=== PATIENT | female | born 1990 | race African-American/Black ===

== ENCOUNTER 2025-01-22 09:14 | Outpatient (CLI) | payer OTHER, SELFPAY ==
--- OUTSIDE RECORDS SUMMARY | 2025-01-22 09:35 | XMS_ITS | Encounter Summary ---
Author Organization [facility] Address [address] [place] [address] Care Team Providers Care Plate Printer Name Role Phone Tori Ron NP Primary Care Provider [phone] Encounter Details Date Type Department Care Team (Late st Contact Info) Description 01/20/2024 Happy [employer]iot Message Enc [facility] Medical Group Multispecialty Care - [place] [address] [place] [address] Tori Ron, WOOD CAULKER [address] [place] [address] medications Social History Tobacco Use Types Packs/Day Years Used Date Smoking Tobacco: Never Smokeless Tobacco: Never Alcohol Use Standard Drinks/Week Comments Yes 1.7 (1 standard drink = 0.6 oz p ure alcohol) AUDIT-C Answer Date Recorded Frequency of Alcohol Consumption Never 12/25/2017 Average Number of Drinks Not on file 018 Frequency of Binge Drinking Not on file 12/12 PHQ-2 Answer Date Recorded Patient Health Questionnaire-2 Score 1 08/19/2022 Comments No Sex and Gender Information Value Date Recorded Sex Assigned at Not on file Legal Sex Female 4:26 PM CDT Gender Identity Not on file Sexual Orientation Not on file documented as of this encounter Plan of Treatment Not on file documented as of this encounter Visit Diagnoses Not on filedocumented in this encounter Additional Health Concerns Assessment Noted Time PHQ-9 Depression Total Score: 11 023 10:32 AM CDT documented as of this encounter Care Teams Plate Printer Relationship Specialty Start Date End Date Tori Ron, WOOD CAULKER [address] [facility] [address] [place] [address] PCP - General NURSE PRACTITIONER 08/11/23 documented as of this encounter
--- OUTSIDE RECORDS SUMMARY | 2025-01-22 09:35 | XMS_ITS | Encounter Summary ---
Author Organization [facility] Address [address] [place] [address] Care Team Providers Care Nondestructive Tester Name Role Phone Kayla Cornelius CARRIER WASHER Primary Care Provider Tori Mcclellan CARRIER WASHER Primary Care Provider [phone] Encounter Details Date Type Department Care Team (Late st Contact Info) Description 08/25/2022 [employer] Message Enc [facility] Medical Group Family Medicine [address] [address] Darlene, [facility] Provider Lab results Social History Tobacco Use Types Packs/Day Years [...] on file Sexual Orientation Not on file COVID-19 Exposure Response Date Recorded In the last 10 days, have yo u been in contact with someone who was confirmed or suspected to have Coronavirus/COVID-19? No / Unsure 08/19/2022 10:04 AM CDT documented as of this encounter Plan of Treatment Not on file documented as of this encounter Visit Diagnoses Not on filedocumented in this encounter Additional Health Concerns Assessment Noted Time PHQ-9 Depression Total Score: 11 023 10:32 AM CDT documented as of this encounter Care Teams Nondestructive Tester Relationship Specialty Start Date End Date Kayla Cornelius, CARRIER WASHER PCP - General NURSE PRACTITIONER 07/13/22 08/10/23 Tori Ron, CARRIER WASHER [address] [facility] [address] [place] [address] PCP - General NURSE PRACTITIONER 08/11/23 documented as of this encounter
--- OUTSIDE RECORDS SUMMARY | 2025-01-22 09:35 | XMS_ITS | Encounter Summary ---
Author Organization [facility] Address [address] [place] [address] Phone Care Team Providers Care Ticket Collector Or Usher Name Role Phone Kayla Cornelius APRN, KAVEH Primary Care Provider + Juan Kong MD Unavailable Encounter Details Date Type Department Care Team (Late st Contact Info) Description 01/12/2024 Telephone [facility] [address] [place] [address] Juan Kong MD [address] [place] [address] Social History Tobacco Use Types Packs/Day Years Used Date Smoking Tobacco: Never Smokeless Tobacco: Never Alcohol Use Standard Drinks/Week Comments Yes 0 (1 standard drink = 0.6 oz pur e alcohol) Sexually Active Control Partners Comments Yes Comments Unknown Sex and Gender Information Value Date Recorded Sex Assigned at Not on file 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 Gender Identity Not on file Sexual Orientation Not on file documented as of this encounter Miscellaneous Notes * Telephone Encounter - Chyna Barrera - 01/12/2024 3:22 PM CDT Called patient about missed appointment left voicemail stating to call office for rescheduling sentreminder letter out as well documented in this encounter Plan of Treatment Not on file documented as of this encounter Visit Diagnoses Not on filedocumented in this encounter Care Teams Ticket Collector Or Usher Relationship Specialty Start Date End Date Kayla Cornelius APRN, KAVEH [address] [place] [address] PCP - General Family Medicine 09/03/22 Juan Kong MD [address] [place] [address] Consulting Physician Oncology 12/31/22 documented as of this encounter
--- OUTSIDE RECORDS SUMMARY | 2025-01-22 09:35 | XMS_ITS | Encounter Summary ---
Author Organization [facility] Address [address] [place] [address] Care Team Providers Care Medical Billing Assistant Name Role Phone Kayla Cornelius MACHINE SPRAYER Primary Care Provider Tori Mcclellan MACHINE SPRAYER Primary Care Provider [phone] Encounter Details Date Type Department Care Team (Late st Contact Info) Description 09/03/2022 [employer] Message Enc [facility] Medical Group Family Medicine - [place] [address] [place] [address] Kayla Cornelius, LEXI iron level Social History Tobacco Use Types Packs/Day Years [...] documented as of this encounter Care Teams Medical Billing Assistant Relationship Specialty Start Date End Date Kayla Cornelius, MACHINE SPRAYER PCP - General NURSE PRACTITIONER 07/13/22 08/10/23 Tori Ron, MACHINE SPRAYER [address] [facility] [address] [place] [address] PCP - General NURSE PRACTITIONER 08/11/23 documented as of this encounter
--- OUTSIDE RECORDS SUMMARY | 2025-01-22 09:35 | XMS_ITS | Encounter Summary ---
Author Organization [facility] Address [address] [place] [address] Care Team Providers Care Refractory Products Supervisor Name Role Phone Kayla Cornelius WINDSHIELD TECHNICIAN Primary Care Provider Tori Mcclellan WINDSHIELD TECHNICIAN Primary Care Provider [phone] Encounter Details Date Type Department Care Team (Late st Contact Info) Description 06/24/2023 [employer] Message Enc [facility] Medical Group Family Medicine - [place] [address] [place] [address] Darlene, [facility] Provider Medic ation Refills Social History Tobacco Use Types Packs/Day Years [...] documented as of this encounter Care Teams Refractory Products Supervisor Relationship Specialty Start Date End Date Kayla Cornelius, WINDSHIELD TECHNICIAN PCP - General NURSE PRACTITIONER 07/13/22 08/10/23 Tori Ron, LEXI [address] [facility] [address] [place] [address] PCP - General NURSE PRACTITIONER 08/11/23 documented as of this encounter
--- OUTSIDE RECORDS SUMMARY | 2025-01-22 09:35 | XMS_ITS | Clinical Summary ---
Author Organization [facility] Address [address] [place] [address] Care Team Providers Care Logging Crew Supervisor Name Role Phone Kayla Cornelius APRN, KAVEH Primary Care Provider + Juan Kong MD Unavailable Allergies No known active allergies Medications ferrous sulfate 220 (44 Fe) MG/5ML Elixir Take 220 mg by mouth. Active VITAMIN D PO Take by mouth. Ac tive Phentermine HCl 37.5 MG Tablet 3 Active valACYclovir (VALTREX) 500 MG Tablet 3 Active MULTIPLE VITAMIN PO Take 3 Each by mouth. Active metFORMIN (GLUCOPHAGE-XR) 500 MG TABLET SR 24 HR Take 1,500 mg by mouth. 4 Active Wegovy 0.25 MG/0.5ML Solution Auto-injector 0.25 mg by Subcutaneous route. 4 Active Active Problems Problem Noted Date Diagnosed Date Iron deficiency anemia 12/01/2022 Family History Medical History Relation Name Comments Congestive Heart Failure Mother Relation Name Status Comments Brother Alive Father Alive Mother Alive Social History Tobacco Use Types Packs/Day Years Used Date Smoking Tobacco: Never Smokeless Tobacco: Never Tobacco Cessation:Counseling Given: No Alcohol Use Standard Drinks/Week Comments Yes 0 (1 standard drink = 0.6 oz pur e alcohol) Sexually Active Control Partners Comments Yes Comments Unknown Sex and Gender Information Value Date Recorded Sex Assigned at Not on file 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 Gender Identity Not on file Sexual Orientation Not on file Last Filed Vital Signs Vital Sign Reading Time Taken Comments Blood Pressure 114/68 10/13/2023 10:28 AM CDT Pulse 72 10/13/2023 10:28 AM CDT Temperature 36.7 C (98 F) 10/13/2023 10:28 AM CDT Respiratory Rate 18 10/13/2023 10:2 8 AM CDT Oxygen Saturation 99% 10/13/2023 10: 28 AM CDT Inhaled Oxygen Concentration - - Weight 101.2 kg (223 lb 1.6 oz) 024 10:28 AM CDT Height 167.6 cm (5' 6) 10/13/2023 10:2 8 AM CDT Body Mass Index 36.01 10/13/2023 10:28 AM CDT Plan of Treatment Health Maintenance Due Date Last Done Comments Hepatitis C Virus (HCV) Screening 1989 Hepatitis B Immunization (3 of 3 - 3-dose series) 09/13/1996 07/19/1996, 01/09/1996 Human Papillomavirus (HPV) Immunization (1 - 3-dose SCDM series) 2016 HPV/Cotest 2019 Influenza Immunization (#1) 2024 SARS-COV-2 Immunization ( season) 2024 Cervical Cancer Screening (CCS) 12/30/2025 Pap Smear 12/30/2025 12/30/2022 Respiratory Syncytial Virus (RSV) Immunization (Adult) (1 - 1-dose 75+ series) 2064 DTaP/Tdap/Td Immunization Discontinued 2015, 09/06/2011, 10/24/2003, Additional history exists TdaP Immunization Completed 12/03/2015 Meningococcal Immunization (ACWY) Aged Out No longer eligible based on patient's age to complete this topic Pneumococcal Immunization Combined Aged Out No longer eligible based on patient's age to complete this topic Rotavirus Immunization Aged Out No lo nger eligible based on patient's age to complete this topic Insurance [facility] Care Teams Logging Crew Supervisor Relationship Specialty Start Date End Date Kayla Cornelius APRN, PULP BEATER [address] [place] [address] PCP - General Family Medicine 09/03/22 Juan Kong MD [address] [place] [address] Consulting Physician Oncology 12/31/22
--- OUTSIDE RECORDS SUMMARY | 2025-01-22 09:35 | XMS_ITS | Clinical Summary ---
Author Organization [facility] [address] [place] [address] Address [address] [place] [address] Care Team Providers Care Adjunct Business Instructor Name Role Phone Taiwo Mccoy MD Primary Care Provider Allergies No known active allergies Medications albuterol sulfate (ProAir RespiClick) 90 mcg/actuation metered powder inhalerIndication s:Mild intermittent extrinsic asthma without complication Take 2 Puffs by inhalation every 6 hours as needed for Shortness of Breath. For wheezing 1 Each 1 3 Active valACYclovir (VALTREX) 500 mg tablet Take 1 Tablet (500 mg) by mouth daily. 30 Tablet 1 4 Active metFORMIN (GLUCOPHAGE XR) 500 mg Extended Release 24 hour tablet Take 3 Tablets (1,500 mg) by mouth daily with supper. 270 Tablet 1 4 Active Zepbound 2.5 mg/0.5 mL Pen Injector INJECT 2.5MG UNDER THE SKIN EVERY 7 DAYS 2 mL 4 Active Active Problems Problem Noted Date Diagnosed Date Severe obesity (BMI 35.0-39.9) with comorbidity 08/23/2023 Hyperlipidemia 08/23/2023 Hyperinsulinemia 08/23/2023 Iron deficiency anemia 12/01/2022 Extrinsic asthma 06/07/2022 Seasonal allergic rhinitis 06/07/2022 Pain of upper abdomen 10/16/2021 Bloating symptom 10/16/2021 Encounters Date Type Department Care Team Description 01/09/2025 External Device Data ST[facility] ABSTRACTION Provider, Abstract 01/08/2025 External Device Data [facility] ABSTRACTION Provider, Abstract 01/02/2025 External Device Data [facility] ABSTRACTION Provider, Abstract 12/18/2024 External Device Data [facility] ABSTRACTION Provider, Abstract 12/04/2024 External Device Data [facility] ABSTRACTION Provider, Abstract 11/27/2024 External Device Data [facility] ABSTRACTION Provider, Abstract 11/13/2024 External Device Data ST[place] ABSTRACTION Provider, Abstract 10/30/2024 External Device Data ST[place] ABSTRACTION Provider, Abstract 10/30/2024 External Device Data ST[place] ABSTRACTION Provider, Abstract 10/23/2024 External Device Data STL ABSTRACTION Provider, Abstract from Last 3 Months Family History Medical History Relation Name Comments Diabetes Maternal Grandmother Gentrevor Heart Disease Mother Mitzi Hypertension Mother Mitzi Relation Name Status Comments Maternal Grandmother Gennetta Mother Mitzi Social History Tobacco Use Types Packs/Day Years Used Date Smoking Tobacco: Never Smokeless Tobacco: Never Tobacco Cessation:Counseling Given: Not Answered Alcohol Use Standard Drinks/Week Comments Yes 0 (1 standard drink = 0.6 oz pur e alcohol) 2 glasses during week Comments No Sex and Gender Information Value Date Recorded Sex Assigned at Not on file Legal Sex Female 10:18 AM CDT Gender Identity Not on file Sexual Orientation Not on file Last Filed Vital Signs Vital Sign Reading Time Taken Comments Blood Pressure 108/68 08/23/2023 1:39 PM CDT Pulse 68 08/23/2023 1:39 PM CDT Temperature 36.1 C (97 F) 03/17/2020 4:52 PM BACKPACKERS MANAGER Respiratory Rate 15 08/03/2023 9:52 AM CDT Oxygen Saturation 98% 08/23/2023 1:39 PM CDT Inhaled Oxygen Concentration - - Weight 100.6 kg (221 lb 12.8 oz) 08/23/2023 1:39 PM CDT Height 165.1 cm (5' 5) 08/23/2023 1:39 PM CDT Body Mass Index 36.91 08/23/2023 1:39 PM CDT Plan of Treatment Health Maintenance Due Date Last Done Comments DTAP/TDAP/TD VACCINES (1 - Tdap) 2008 HEPATITIS B VACCINES (1 of 3 - 19+ 3-dose series) 2008 HPV/Cotest (21-29) 2010 HPV VACCINES (1 - 3-dose SCDM series) 2016 HPV/Cotest (30-65) 2019 Preventative Visit- Commercial 03/14/2024 1 , 06/07/2022, 02/07/2019 INFLUENZA VACCINE (#1) 2024 CERVICAL CANCER SCREENING 12/30/2025 PAP SMEAR 12/30/2025 12/30/2022 Pre-Diabetes and Diabetes Screening 07/26/202607/26 Procedures Procedure Name Priority Date/Time Associated Diagnosis Comments HEMOGLOBIN A1C Routine 07/27/2023 7:23 AM CDT Screening for diabetes mellitus from Last 3 Months or Most Recently Relevant to Health Maintenance Results * HEMOGLOBIN A1C (07/27/2023 7:23 AM CDT) HEMOGLOBIN A1C 5.5 <5.7 % of total Hgb [employer] Comment: For the purpose of screening for the presence of diabetes: <5.7% Consistent with the absence of diabetes 5.7-6.4% Consistent with increased risk for diabetes (prediabetes) > or =6.5% Consistent with diabetes This assay result is consistent with a decreased risk of diabetes. Currently, no consensus exists regarding use of hemoglobin A1c for diagnosis of diabetes in children. According to [place] Diabetes Association (ADA) guidelines, hemoglobin A1c <7.0% represents optimal control in non- diabetic patients. Different metrics may apply to specific patient populations. Standards of Medical Care in Diabetes(ADA). ESTIMATED AVERAGE GLUCOSE (MG/DL) 111 mg/dL [employer] [employer] ESTIMATED AVERAGE GLUCOSE (MMOL/L) 6.2 mmol/L [employer] Comment: This test was performed on the Azalea jae c503 platform. Effective 05/30/23, a change in test platforms from the [employer]iler to the Azalea jae c503 may have shifted HbA1c results compared to historical results. Based on laboratory validation testing conducted at [facility], the Azalea platform relative to the Sylvester platform had an average increase in HbA1c value of < or = 0.3%. This difference is within accepted variability established by the National Glycohemoglobin Standardization Program. Note that not all individuals will have had a shift in their results and direct comparisons between historical and current results for testing conducted on different platforms is not recommended. FASTING:YES FASTING: YES Test Performed at: [facility] [address] [address] Marie Newman Blood 07/27/2023 7:23 AM CDT 07/27/2023 7:23 AM CDT Kendra Wilson ANP CHEMISTRY ORDERABLES Final R esult [facility] [phone] [facility] [address] [address] [phone] from Last 3 Months or Most Recently Relevant to Health Maintenance Insurance [facility] [id number] Care Teams Adjunct Business Instructor Relationship Specialty Start Date End Date Taiwo Mccoy MD [address] [facility] [address] [place] [address] PCP - General Family Practice 10/16/21
--- OUTSIDE RECORDS SUMMARY | 2025-01-22 09:35 | XMS_ITS | Clinical Summary ---
Author Organization [facility] Address [address] [place] [address] Care Team Providers Care Gas Welder Apprentice Name Role Phone Tori Ron EMPLOYEE RELATIONS DIRECTOR Primary Care Provider [phone] Allergies No known active allergies Medications ferrous sulfate 220 (44 Fe) MG/5ML liquid Take 5 mLs (220 mg total) by mouth 2 (two) times daily. Active Cholecalciferol (VITAMIN D3) Powder Take by mouth. Activ e phentermine (ADIPEX-P) 37.5 MG tabletIndicatio ns:Obesity (BMI 30-39.9) Take 1 tablet (37.5 mg total) by mouth every morning before breakfast. 30 tablet 3 Active Additional Information Patient not taking.Reported on 05/03/2023 Multiple Vitamins-Minera ls (MULTIVITAMIN GUMMIES ADULTS OR) Take 3 each by mouth daily. Includes a Probiotic Active valACYclovir (VALTREX) 500 MG tabletIndicatio ns:Herpes Take 1 tablet (500 mg total) by mouth daily. 30 tablet 4 Active Family History Medical History Relation Comments Diabetes Father Diabetes Maternal Grandmother Diabetes Mother Relation Status Comments Father Alive Maternal Grandmother Mother Alive Social History Tobacco Use Types Packs/Day Years Used Date Smoking Tobacco: Never Smokeless Tobacco: Never Tobacco Cessation:Counseling Given: Not Answered Alcohol Use Standard Drinks/Week Comments Yes 1.7 [...] Sign Reading Time Taken Comments Blood Pressure 90/58 05/03/2023 11:25 AM [employer]ALL INTER[employer] Pulse 72 05/03/2023 11:25 AM [employer]ALL INTER[employer] Temperature 36.4 C (97.5 F) 05/03/2023 11:25 AM [employer] INTER[employer] Respiratory Rate 18 12/30/2022 12:27 PM CDT Oxygen Saturation 98% 12/30/2022 12:27 PM CDT Inhaled Oxygen Concentration - - Weight 95.7 kg (211 lb) 05/03/2023 11:25 AM FALL INTERNSHIP Height 167.6 cm (5' 6) 05/03/2023 11:25 AM [employer]ALL INTERNS[employer] Body Mass Index 34.06 05/03/2023 11:25 AM [employer] Plan of Treatment Health Maintenance Due Date Last Done Comments Hepatitis C 2007 DTaP, Tdap and Td Vaccines (1 - Tdap) 2008 01/09/1996, 01/14/1993, 01/11/1990, Additional history exists Hepatitis B Vaccines (1 of 3 - 19+ 3-dose series) 2008 HPV Vaccines (1 - 3-dose SCDM series) 2016 Annual Physical 12/31/2023 12/30/2022 PHQ-2 (Physician [place]) 03/14/2024 COVID-19 Vaccine ( season) 2024 Influenza Adult (#1) 2024 Cervical Cancer Screening Pap Smear (Age 30 to 64) Every 3 Years 12/30/2025 12/30/2022 Cervical Cancer Screening Pap with HPV Testing (Age 30 to 64) Every 5 Years 12/31/2027 12/30/2022 Cervical Cancer Screening with HPV 12/31/2027 Hepatitis A Vaccines Aged Out No long er eligible based on patient's age to complete this topic Meningococcal B Vaccine Aged Out No l onger eligible based on patient's age to complete this topic Meningococcal Vaccine Aged Out No rosi millie eligible based on patient's age to complete this topic Pneumococcal Vaccine: Pediatrics (0 to 5 Years) and At-Risk Patients (6 to 49 Years) Aged Out No longer eligible based on patient's age to complete this topic RSV Immunizations Under 20 Months Aged Out No longer eligible based on patient's age to complete this topic Procedures Procedure Name Priority Date/Time Associated Diagnosis Comments HUMAN PAPILLOMAVIRUS, HIGH-RISK TYPES Routine 12/30/2022 12:00 PM CDT CYTOPATH CERV/VAG THIN LAYER Routine 12/30/2022 8:31 AM CDT from Last 3 Months or Most Recently Relevant to Health Maintenance Results * HUMAN PAPILLOMAVIRUS, HIGH-RISK TYPES (12/30/2022 12:00 PM CDT) SPEC DESCRIPTION CERVIX 01/04/20 9:50 AM CDT [facility] HPV DNA HIGH RISK NEGATIVE NEGATIVE 01/03/2023 4:08 PM CDT [facility] Comment:SEE CYTOLOGY REPORT 12/30/2022 12:0 0 PM CDT Mary Kay Cornelius NP PATHOLOGY/CYTOLOGY ORDERABLES F inal Result [facility] [address] [place] [address], * Cytopath Cerv/Vag Thin Layer (12/30/2022 8:31 AM CDT) THIN PREP [facility] [address] [place] [address] Department of Pathology Pathology Report CERVICAL/VAGINAL PAP SMEAR REPORT Name: BONNIE WHATLEY Age: 2 1990 (Age: 32) Location: [facility] Sex: F Collected Date: 12/30/2022 [facility] #: [id number] Date Received: 01/03/2023 Date Reported: 01/04/2023 Provider: MARY KAY CORNELIUS NP INTERPRETATION CERVICAL/ENDOCERVI SENAIT: SATISFACTORY FOR EVALUATION. ENDOCERVICAL/TRANS FORMATION ZONE COMPONENT PRESENT. NEGATIVE FOR INTRAEPITHELIAL LESION OR MALIGNANCY. SHIFT IN BACTERIAL FELIX SUGGESTIVE OF BACTERIAL VAGINOSIS. NEGATIVE FOR HIGH RISK HPV. The FDA approved Aptima HPV assay is an in vitro nucleic acid amplification test for the qualitative detection of E6/E7 viral messenger RNA (mRNA) from 14 high-risk types of human papillomavirus (HPV) in cervical specimens. The high-risk HPV types detected by the assay include: 16,18,31,33,35,39, 45,51,52,56,58,59, 66, and 68. Electronically Signed Out By LOLY Raymond (ASCP) CLINICAL HISTORY Z01.419 SCREENING PAP ThinPrep Pap Test with HR HPV testing in patient > 30 years requested. Date of Last Menstrual Period: 12/26/2022 Menstrual Status: Regular SPECIMEN SUBMITTED CERVICAL/ENDOCERVI SENAIT Specimen Received:1 Thin Prep Vial, Image Assisted Pap (SMD) Please note: The Pap smear is not a diagnostic test. It is a screening test. Negative results on combined screening (Pap test and HPV-DNA) have a high negative predictive value (99.1-100 percent) for cervical cancer. The pap test is not effective in detecting cervical adenocarcinoma. [facility] 12/30/2022 8:31 AM CDT 01/03/2023 8:31 AM CDT Comment:CERVICAL/ENDOCERVICA L us Mary Kay Cornelius NP PATHOLOGY/CYTOLOGY ORDERABLES F inal Result [facility] [address] [place] [address], from Last 3 Months or Most Recently Relevant to Health Maintenance Insurance [facility] Care Teams Gas Welder Apprentice Relationship Specialty Start Date End Date Tori Ron NP [address] [place] [address] PCP - General NURSE PRACTITIONER 08/11/23
[2025-01-22 13:33] LABS: Add Urine Microscopic? YES; Appearance Urine Clear (Clear); Budding Yeast Urine Present /hpf; Glucose Urine UA Negative (Negative); Leukocyte Esterase Ur 1+ LEU/UL (Negative); Need Manual Microscopic Reviewed; Nitrate Urine Negative (Negative); Non Pathogenic Casts 0-2; Specific Grav Ur 1.031 (1.001-1.035)
== END 2025-01-22 09:15 | disposition home or self-care (01) ==
LOC: ANHGOSHLAB 09:19
DX: N76.0 Acute vaginitis (principal); B96.89 Other specified bacterial agents as the cause of diseases classified elsewhere
CPT/HCPCS: 81001; 87086; 87798